=== PATIENT | male | born 1995 | race Caucasian/White ===

== ENCOUNTER 2020-11-11 06:22 | Emergency (ER) | payer BC ==
[~2020-11-11] VITALS: Ht 175.3 cm; Wt 81.8 kg
[2020-11-11 06:43] VITALS: BP 134/86
[2020-11-11] MEDS ORDERED: METH4TAB81 PO (07:32)
[2020-11-11] MEDS ORDERED: HYDR-3965 PO (07:32)
[2020-11-11] MEDS ORDERED: ONDA4TAB6 PO (07:32)
[2020-11-11] MEDS ORDERED: CLIN150C2 PO (07:32)
[2020-11-11] MEDS ORDERED: HYDROcodone/acetaminophen 10/325mg tab PO ONE (07:35)
[2020-11-11] MEDS ORDERED: dexamethasone 4mg tablet PO ONE (07:35)
[2020-11-11] MEDS ORDERED: ondansetron 4mg rapidly disintigrating tab PO ONE (07:35)
[2020-11-11 08:34] LABS: BASOPHILS % (AUTO) 0.1 % (0-1); EOSINOPHILS % (AUTO) 0.3 % (0-6); HEMATOCRIT 47.3 % (42.0-52.0); HEMOGLOBIN 16.1 g/dl (14.0-17.9); LYMPHOCYTES # (AUTO) 1.9 X10'3 (1.1-4.8); LYMPHOCYTES % (AUTO) 15.8 % (21-51); MEAN CORPUSCULAR HEMOGLOBIN 31.4 PG (27.0-31.0); MEAN CORPUSCULAR HGB CONC 34.1 g/dL (33.0-36.5); MEAN CORPUSCULAR VOLUME 92.1 FL (78-98); MONOCYTES # (AUTO) 1.2 X10'3 (0-0.9); NEUTROPHILS # (AUTO) 8.7 X10'3 (1.8-7.7); NEUTROPHILS % (AUTO) 73.8 % (42-75); PLATELET COUNT 254 X10'3 (140-440); RED BLOOD COUNT 5.14 X10'6 (4.70-6.10); RED CELL DISTRIBUTION WIDTH 13.4 % (11.5-14.5); WHITE BLOOD COUNT 11.8 X10'3 (4.5-11.0)
== END 2020-11-11 09:22 | disposition home or self-care (01) ==
LOC: ER 06:23
DX: K04.7 Periapical abscess without sinus (principal); F41.9 Anxiety disorder, unspecified; Z88.1 Allergy status to other antibiotic agents; Z88.0 Allergy status to penicillin; F12.10 Cannabis abuse, uncomplicated
CPT/HCPCS: 36415; 85025; 99284

== ENCOUNTER 2020-12-25 01:21 | Emergency (ER) | payer BC ==
[~2020-12-25] VITALS: Ht 175.3 cm; Wt 175.0 kg
[~2020-12-25 01:21] MED LIST: METH4TAB81 PO; ONDA4TAB6 PO
[2020-12-25] MEDS ORDERED: normal saline 1000ml 1,000 ML IV ONE ×2 (01:40→03:00)
[2020-12-25] MEDS ORDERED: MIDAZolam 5mg/ml 2ml vial IV ONE (01:40)
[2020-12-25 01:46] LABS: BASOPHILS % (AUTO) 0.3 % (0-1); EOSINOPHILS % (AUTO) 0.1 % (0-6); HEMOGLOBIN 16.7 g/dl (14.0-17.9); LYMPHOCYTES # (AUTO) 3.5 X10'3 (1.1-4.8); LYMPHOCYTES % (AUTO) 29.4 % (21-51); MEAN CORPUSCULAR HEMOGLOBIN 30.5 PG (27.0-31.0); MEAN CORPUSCULAR VOLUME 89.6 FL (78-98); MEAN PLATELET VOLUME 8.4 FL (7.4-10.4); MONOCYTES # (AUTO) 0.9 X10'3 (0-0.9); MONOCYTES % (AUTO) 7.6 % (2-12); NEUTROPHILS # (AUTO) 7.5 X10'3 (1.8-7.7); NEUTROPHILS % (AUTO) 62.6 % (42-75); PLATELET COUNT 352 X10'3 (140-440); RED BLOOD COUNT 5.46 X10'6 (4.70-6.10)
[2020-12-25 01:58] LABS: ALANINE AMINOTRANSFERASE 34 U/L (12-78); ALBUMIN/GLOBULIN RATIO 1.2 (1.1-1.5); ALKALINE PHOSPHATASE 73 IU/L (46-116); ANION GAP 12 (8-16); ASPARTATE AMINO TRANSFERASE 15 U/L (10-37); BILIRUBIN,TOTAL 0.4 MG/DL (0.1-1.0); BLOOD UREA NITROGEN 11 MG/DL (7-18); BUN/CREATININE RATIO 9.5 (5.4-32.0); CALCIUM 8.7 MG/DL (8.5-10.1); CHLORIDE 105 MMOL/L (99-107); CREATININE 1.16 MG/DL (0.60-1.10); GLUCOSE 121 MG/DL (70-104); POTASSIUM 3.7 MMOL/L (3.5-5.1); SODIUM 139 MMOL/L (135-145); TOTAL CARBON DIOXIDE 22.4 MMOL/L (24-32); TOTAL PROTEIN 7.4 G/DL (6.4-8.2); eGFR 78 ML/MIN
[2020-12-25 03:09] VITALS: BP 116/69
== END 2020-12-25 05:59 | disposition home or self-care (01) ==
LOC: ER 01:23
DX: F14.129 Cocaine abuse with intoxication, unspecified (principal); R00.0 Tachycardia, unspecified; F41.9 Anxiety disorder, unspecified; F12.90 Cannabis use, unspecified, uncomplicated; Z88.0 Allergy status to penicillin; Z79.899 Other long term (current) drug therapy
CPT/HCPCS: 36415; 71045; 80053; 85025; 93005; 96361; 96374; 99285; J2250; J7030

== ENCOUNTER 2021-05-31 11:04 | Emergency (ER) | payer BC ==
[~2021-05-31] VITALS: Ht 175.3 cm; Wt 81.0 kg
[2021-05-31] MEDS ORDERED: normal saline 1000ML IV soln IVB ONE ×2 (11:15→11:20)
[2021-05-31 11:28] LABS: BASOPHILS % (AUTO) 0.5 % (0-1); EOSINOPHILS # (AUTO) 0.1 X10'3 (0-0.9); HEMATOCRIT 51.9 % (42.0-52.0); HEMOGLOBIN 17.6 g/dl (14.0-17.9); LYMPHOCYTES # (AUTO) 3.7 X10'3 (1.1-4.8); LYMPHOCYTES % (AUTO) 45.9 % (21-51); MEAN CORPUSCULAR VOLUME 91.1 FL (78-98); MEAN PLATELET VOLUME 8.1 FL (7.4-10.4); MONOCYTES # (AUTO) 0.7 X10'3 (0-0.9); MONOCYTES % (AUTO) 8.2 % (2-12); NEUTROPHILS # (AUTO) 3.6 X10'3 (1.8-7.7); NEUTROPHILS % (AUTO) 44.4 % (42-75); PLATELET COUNT 306 X10'3 (140-440); RED CELL DISTRIBUTION WIDTH 13.3 % (11.5-14.5); WHITE BLOOD COUNT 8.1 X10'3 (4.5-11.0)
[2021-05-31 11:54] LABS: ALANINE AMINOTRANSFERASE 39 U/L (12-78); ALBUMIN 4.2 G/DL (3.4-5.0); ALBUMIN/GLOBULIN RATIO 1.1 (1.1-1.5); ALKALINE PHOSPHATASE 76 IU/L (46-116); ANION GAP 11 (8-16); ASPARTATE AMINO TRANSFERASE 21 U/L (10-37); BILIRUBIN,TOTAL 0.6 MG/DL (0.1-1.0); BLOOD UREA NITROGEN 13 MG/DL (7-18); BUN/CREATININE RATIO 13.5 (5.4-32.0); CALCIUM 9.3 MG/DL (8.5-10.1); CHLORIDE 104 MMOL/L (99-107); CREATININE 0.96 MG/DL (0.60-1.10); GLUCOSE 98 MG/DL (70-104); POTASSIUM 4.2 MMOL/L (3.5-5.1); SODIUM 142 MMOL/L (135-145); TOTAL CARBON DIOXIDE 27.1 MMOL/L (24-32); TOTAL PROTEIN 7.9 G/DL (6.4-8.2); eGFR > 90 ML/MIN
[2021-05-31] MEDS ORDERED: magnesium 2GM in 50ml NS 50 ML IV ONE (11:55)
[2021-05-31 11:56] LABS: ETHANOL < 0.010 GM/DL (0.0-0.010); MAGNESIUM 2.2 MG/DL (1.5-2.4)
[2021-05-31] MEDS ORDERED: enoxaparin 100mg/ml syringe SUBCUT ONE (12:00)
[2021-05-31] MEDS ORDERED: etomidate 2mg/ml inj. IV ONE (12:00)
[2021-05-31] MEDS ORDERED: enoxaparin 80mg/0.8ml syringe SUBCUT ONE (12:15)
--- NOTE | 2021-05-31 12:20 | NUR ---
RT, MD, PRIMARY RN AT BEDSIDE ZOLL PADS PLACED, PACED AT 120 ETOMIDATE 15 MG 1222 ADMINISTERED 1223 SHOCK ADMINISTERED 120 JOULS HR 114, 110/63, 20, 94% 5 LTR NC 1MG ATIVAN ADMINISTERED PER MD VERBAL ORDER. PT AWAKE AND ALERT. 1232 SINUS @83
[2021-05-31] MEDS ORDERED: LORazepam 2 mg/ml vial ONE (12:25)
[2021-05-31] MEDS ORDERED: LORazepam 2 mg/ml vial IV ONE (12:25)
[2021-05-31 12:31] LABS: D-DIMER < 0.19 MG/L FEU (0-0.50)
[2021-05-31] MEDS ORDERED: ASPI-1265 PO (12:52)
[2021-05-31 13:38] VITALS: BP 118/73
== END 2021-05-31 13:40 | disposition home or self-care (01) ==
LOC: ER 11:05
DX: I48.20 Chronic atrial fibrillation, unspecified (principal); R00.2 Palpitations; F12.90 Cannabis use, unspecified, uncomplicated; Z76.89 Persons encountering health services in other specified circumstances; Z98.890 Other specified postprocedural states; Z88.0 Allergy status to penicillin; Z79.82 Long term (current) use of aspirin; Z79.899 Other long term (current) drug therapy
CPT/HCPCS: 36415; 71045; 80053; 80320; 83735; 83880; 84484; 85025; 85379; 92960; 93005; 94799; 96372; 96374; 99291; J1650; J2060; J3490; J7030; 94760

== ENCOUNTER 2021-08-07 22:02 | Emergency (ER) | payer BC ==
[~2021-08-07] VITALS: Ht 175.3 cm; Wt 82.7 kg
[2021-08-07 22:11] VITALS: BP 131/83
== END 2021-08-08 01:07 | disposition left against medical advice (07) ==
LOC: ER 22:03
DX: R00.2 Palpitations (principal); Z53.21 Procedure and treatment not carried out due to patient leaving prior to being seen by health care provider
CPT/HCPCS: 93005